=== PATIENT | male | born 1950 | race Caucasian/White ===

== ENCOUNTER 2017-02-21 23:50 | Inpatient (IN) | payer MEDICARE ==
[2017-02-22] VITALS (33 sets, daily range): BP systolic 104–135; BP diastolic 56–84
[2017-02-22] MEDS ORDERED: ALTEPLASE 1 MG/ML ONE (00:26)
[2017-02-22] MEDS ORDERED: ALTEPLASE IV ONE ×2 (00:30)
[2017-02-22] MEDS ORDERED: PLEASE ENTER HEIGHT MC SCH (01:00)
[2017-02-22] MEDS ORDERED: PLEASE ENTER ALLERGIES MC SCH ×2 (01:00)
[2017-02-22] MEDS ORDERED: LABETALOL 5MG/ML, 20ML IV PRN (01:30)
[2017-02-22] MEDS ORDERED: ACETAMINOPHEN 650 MG/20.3 ML UDC PO PRN (01:30)
[2017-02-22] MEDS ORDERED: DOCUSATE CALCIUM 240 MG CAPSULE PO PRN (01:30)
[2017-02-22] MEDS ORDERED: ONDANSETRON 2MG/ML, 2ML IV PRN (01:30)
[2017-02-22] MEDS ORDERED: BISACODYL 10 MG SUPP PR PRN (01:30)
[2017-02-22] MEDS ORDERED: MAGNESIUM HYDROXIDE 8%, 30ML UDC PO PRN (01:30)
[2017-02-22] MEDS ORDERED: SODIUM CHLORIDE 0.9% 1,000 ML IV SCH (09:30)
[2017-02-22] MEDS ORDERED: ACETAMINOPHEN 325 MG TABLET ONE (19:57)
[2017-02-23] VITALS: BP 127/69
[2017-02-23 01:00] VITALS: BP 119/62
[2017-02-23 04:42] LABS: ASPARTATE AMINO TRANSFERASE 15 U/L (15-37); BLOOD UREA NITROGEN 14 mg/dL (7-18)
[2017-02-23] MEDS ORDERED: ASPIRIN 81 MG TABLET EC PO ONE (12:30)
[2017-02-23] MEDS ORDERED: ATORVASTATIN 80 MG TABLET PO SCH ×2 (13:30)
[2017-02-23 16:18] VITALS: BP 107/67
[2017-02-23 20:18] VITALS: BP 110/70
[2017-02-23] MEDS: ATORVASTATIN 80 MG TABLET PO SCH (20:27)
[2017-02-24 03:00] VITALS: BP 110/74
[2017-02-24 05:49] LABS: BLOOD UREA NITROGEN 12 mg/dL (7-18)
[2017-02-24] MEDS: ASPIRIN 81 MG TABLET EC PO SCH (06:05)
[2017-02-24 06:46] VITALS: BP 113/74
[2017-02-24 12:33] VITALS: BP 102/71
[2017-02-24] MEDS: SODIUM CHLORIDE 0.9% 1,000 ML IV SCH (17:00)
[2017-02-24 20:21] VITALS: BP 114/72
[2017-02-24] MEDS: ATORVASTATIN 80 MG TABLET PO SCH (21:28)
[2017-02-25] MEDS: SODIUM CHLORIDE 0.9% 1,000 ML IV SCH ×2 (02:04→13:00)
[2017-02-25 02:05] VITALS: BP 110/65
[2017-02-25] MEDS: ASPIRIN 81 MG TABLET EC PO SCH (05:31)
[2017-02-25 06:45] VITALS: BP 114/77
[2017-02-25] MEDS ORDERED: LIDOCAINE 1%-EPI 1:100K, 20ML ONE (10:46)
[2017-02-25 13:45] VITALS: BP 106/73
[2017-02-25 19:41] VITALS: BP 104/68
[2017-02-25] MEDS: ATORVASTATIN 80 MG TABLET PO SCH (20:17)
[2017-02-26] MEDS: SODIUM CHLORIDE 0.9% 1,000 ML IV SCH (01:04)
[2017-02-26 01:37] VITALS: BP 101/63
[2017-02-26] MEDS: ASPIRIN 81 MG TABLET EC PO SCH (05:39)
[2017-02-26 06:43] VITALS: BP 101/65
[2017-02-26] MEDS ORDERED: ASPI-621 PO (09:35)
[2017-02-26] MEDS ORDERED: ATOR80TA75 PO (09:35)
[2017-02-26] MEDS ORDERED: MAGN400O4 PO (09:35)
[2017-02-26] MEDS ORDERED: ACETAMINOPHEN 325 MG TABLET PO PRN (10:30)
[2017-02-26 13:05] VITALS: BP 105/65
== END 2017-02-26 17:15 | DRG 40 ==
LOC: ED 23:59 → EDIP 02-22 00:37 → CCU 02-22 01:31 → 4EST 02-23 16:04
PROC: 3E03317 Introduction of Other Thrombolytic into Peripheral Vein, Percutaneous Approach (ICD-10-PCS; 2017-02-22)
PROC: 0JH632Z Insertion of Monitoring Device into Chest Subcutaneous Tissue and Fascia, Percutaneous Approach (ICD-10-PCS; principal; 2017-02-25)
DX: I63.411 Cerebral infarction due to embolism of right middle cerebral artery (principal); G93.40 Encephalopathy, unspecified; G81.94 Hemiplegia, unspecified affecting left nondominant side; E78.5 Hyperlipidemia, unspecified; I48.91 Unspecified atrial fibrillation; E11.9 Type 2 diabetes mellitus without complications; G51.0 Bell's palsy; I10 Essential (primary) hypertension; K21.9 Gastro-esophageal reflux disease without esophagitis; R29.712 NIHSS score 12; M54.5 Low back pain; G89.29 Other chronic pain; I45.9 Conduction disorder, unspecified; K44.9 Diaphragmatic hernia without obstruction or gangrene; Z88.0 Allergy status to penicillin; Z80.7 Family history of other malignant neoplasms of lymphoid, hematopoietic and related tissues; Z87.891 Personal history of nicotine dependence
CPT/HCPCS: 33282; 36415; 70450; 70551; 74230; 80047; 80048; 80053; 80061; 81003; 85025; 85610; 85730; 87081; 93005; 93306; 93880; 96374; C1764; J2997; J3490; 92523-GN; J7030

== ENCOUNTER 2019-11-23 09:21 | Day surgery (SDC) | payer MEDICARE ==
[~2019-11-23] VITALS: Ht 180.3 cm; Wt 86.5 kg
[~2019-11-23 09:21] MED LIST: ASPI81TA45 PO; ATOR-2 PO; MAGN400O7 PO
[2019-11-23] MEDS ORDERED: LIDOCAINE 2%, 20ML ONE (09:50)
== END 2019-11-23 11:18 | disposition home or self-care (01) ==
LOC: CACL 09:21
PROVIDERS: ATTEND Internal Medicine Cardiovascular Disease
DX: Z45.09 Encounter for adjustment and management of other cardiac device (principal)
CPT/HCPCS: 33286

== ENCOUNTER 2020-12-29 10:30 | Emergency (ER) | payer MEDICARE ==
[~2020-12-29] VITALS: Ht 182.9 cm; Wt 89.0 kg
--- NOTE | 2020-12-29 10:36 | NUR ---
PT BROUGHT IN FROM TRIAGE WITH CHIEF COMPLAINT OF ALLERGIC REACTION THIS AM- UNSURE OF SOURCE. PT WAS EATING BREAKFAST WENT TO [facility] AND NOTICED SWELLING OF RIGHT SIDE OF FACE. ADINISTERED EPI PEN AND CALLED [facility]. AIRWAY PATENT, ABLE TO SPEAK SENTACNES.
[2020-12-29] MEDS ORDERED: methylPREDNISolone SOD SUCC 125 MG/2 ML ONE (10:49)
[2020-12-29] MEDS ORDERED: FAMOTIDINE 20 MG/2 ML ONE (10:49)
--- NOTE | 2020-12-29 10:51 | NUR ---
Report to Nathan VASQUEZ
[2020-12-29] MEDS ORDERED: methylPREDNISolone SOD SUCC 125 MG/2 ML IVPush ONE (11:00)
[2020-12-29] MEDS ORDERED: FAMOTIDINE 20 MG/2 ML IVPush ONE (11:00)
--- NOTE | 2020-12-29 11:07 | NUR ---
PT MEDICATED PER JAN. GIVEN WARM BLANKET AN POSITIONED FOR COMFORT. NO OTHER REQUESTS AT THIS TIME. JENNIFER.
--- NOTE | 2020-12-29 12:09 | NUR ---
BEDSIDE FOR RECHECK
--- NOTE | 2020-12-29 12:39 | NUR ---
PT STATES 'I FEEL COMFORTABLE GOING HOME'
[2020-12-29 13:28] VITALS: BP 120/76
== END 2020-12-29 13:31 | disposition home or self-care (01) ==
LOC: ED 10:48
DX: T78.3XXA Angioneurotic edema, initial encounter (principal); T78.1XXA Other adverse food reactions, not elsewhere classified, initial encounter; E78.5 Hyperlipidemia, unspecified; I48.91 Unspecified atrial fibrillation; Z86.73 Personal history of transient ischemic attack (TIA), and cerebral infarction without residual deficits; X58.XXXA Exposure to other specified factors, initial encounter
CPT/HCPCS: 96374; 96375; 99284; J2930

== ENCOUNTER → 2021-03-22 | Outpatient (CLI) | payer MEDICARE ==
[~2021-03-22] MED LIST changes: +ALFU10TA PO; +BACI1TAB3 PO; +CHOL10003 PO; +DOCU100C33 PO; +ESOM20CA57 PO; +FINA5TAB4 PO; +LORA-59 PO; +OXYB-39 PO; +ROSU20TA2 PO
[2021-03-22 15:17] LABS: BASOPHILS % (AUTO) 1 % (0-1); EOSINOPHILS % (AUTO) 3 % (1-7); LYMPHOCYTES % (AUTO) 34 % (22-44); MD NO; MEAN CORPUSCULAR HEMOGLOBIN 32.1 pg (27.5-34.5); MEAN CORPUSCULAR HGB CONC 35.3 g/dL (33.2-36.2); MEAN PLATELET VOLUME 8.5 fL (7.4-10.4); MONOCYTES % (AUTO) 8 % (2-9); NEUTROPHILS % (AUTO) 54 % (42-75); PLATELET COUNT 201 x10^3/uL (130-400); RED BLOOD COUNT 4.67 x10^6/uL (4.38-5.82); RED CELL DISTRIBUTION WIDTH 13.6 % (9.4-14.8)
[2021-03-22 15:30] LABS: ANION GAP 4 mmol/L (5-15); CALCIUM 9.2 mg/dL (8.5-10.1); CHLORIDE 104 mmol/L (98-107); CREATININE 0.67 mg/dL (0.7-1.3)
[2021-03-22 15:42] LABS: INTERNATIONAL NORMALIZED RATIO 1.01 (0.93-1.1); PROTHROMBIN TIME 10.8 Seconds (9.6-11.5)
== END | disposition home or self-care (01) ==
LOC: STAR 13:13
PROVIDERS: ATTEND Neurological Surgery
DX: Z01.818 Encounter for other preprocedural examination (principal); M48.061 Spinal stenosis, lumbar region without neurogenic claudication; M51.34 Other intervertebral disc degeneration, thoracic region; M41.84 Other forms of scoliosis, thoracic region; I49.3 Ventricular premature depolarization
CPT/HCPCS: 36415; 71046; 80048; 85025; 85610; 85730; 93005

== ENCOUNTER → 2021-03-26 | Outpatient (CLI) | payer MEDICARE | END | disposition home or self-care (01) | LOC: STAR 14:57 | PROVIDERS: ATTEND Neurological Surgery | DX: Z20.822 Contact with and (suspected) exposure to COVID-19 (principal) | CPT/HCPCS: U0005; U0003 ==